=== PATIENT | male | born 1950 | race Caucasian/White ===

== ENCOUNTER 2024-05-04 16:57 | Inpatient (IN) | payer OTHER ==
[~2024-05-04] VITALS: Ht 170.2 cm; Wt 83.9 kg
[~2024-05-04 16:57] MED LIST: INSU10SU6 SUBQ
[2024-05-04 17:01] VITALS: BP 136/74; PULSE 92; RESP 20; TEMP 98.5; O2SAT 91
[2024-05-04 17:53] LABS: BASOPHILS # (AUTO) 0.2 K/uL (0.00-0.22); BASOPHILS % (AUTO) 1.4 % (0.0-2.0); EOSINOPHILS # (AUTO) 0.5 K/uL (0-0.4); EOSINOPHILS % (AUTO) 3.5 % (0.0-4.0); HEMATOCRIT 41.9 % (36-52); HEMOGLOBIN 13.9 g/dL (12.0-18.0); LYMPHOCYTES # (AUTO) 3.6 K/uL (2.0-11.5); LYMPHOCYTES % (AUTO) 25.3 % (20.5-51.1); MEAN CORPUSCULAR HEMOGLOBIN 28 pg (27-31); MEAN CORPUSCULAR HGB CONC 33 g/dL (33-37); MEAN CORPUSCULAR VOLUME 82.9 fL (80-94); MONOCYTES # (AUTO) 1.3 K/uL (0.8-1.0); MONOCYTES % (AUTO) 9.4 % (1.7-9.3); NEUTROPHILS # (AUTO) 8.5 K/uL (1.8-7.7); NEUTROPHILS % (AUTO) 60.4 % (42.2-75.2); PLATELET COUNT (AUTO) 442 K/uL (140-450); RED BLOOD CELL COUNT(AUTO) 5.05 MIL/uL (4.20-6.10); RED CELL DISTRIBUTION WIDTH 19.4 % (11.6-13.7); WHITE BLOOD COUNT (AUTO) 14.1 K/uL (4.8-10.8)
[2024-05-04 18:05] LABS: CARBON DIOXIDE 28.3 mmol/L (21-32); CHLORIDE 102 mmol/L (98-107); CREATININE 1.1 mg/dL (0.6-1.3); GLUCOSE 212 mg/dL (74-106); POTASSIUM 3.3 mmol/L (3.5-5.1); SODIUM SERUM 139 mmol/L (136-145); UREA NITROGEN, BLOOD 12 mg/dL (7-18)
[2024-05-04 18:22] LABS: ALANINE AMINOTRANSFERASE 17 U/L (12-78); ALBUMIN 2.6 g/dL (3.4-5.0); ALKALINE PHOSPHATASE 87 U/L (50-136); ASPARTATE AMINOTRANSFERASE 20 U/L (15-37); BILIRUBIN,DIRECT 0.1 mg/dL (0.0-0.3); TOTAL BILIRUBIN 0.3 mg/dL (0.0-1.0); TOTAL PROTEIN, SERUM 7.3 g/dL (6.4-8.2)
[2024-05-04 18:28] LABS: LACTIC ACID 1.9 mmol/L (0.4-2.0)
[2024-05-04 18:29] LABS: BILIRUBIN,URINE 1+ (NEGATIVE); BLOOD, URINE 3+ (NEGATIVE); LEUKOCYTE ESTERASE ,URINE 1+ (NEGATIVE); NITRITE, URINE POSITIVE (NEGATIVE); PROTEIN,URINE 3+ (NEGATIVE); UGLUCOSE 3+ (NEGATIVE)
[2024-05-04 18:30] LABS: APPEARANCE,URINE SLIGHTLY CLOUDY (CLEAR); COLOR,URINE RED (YELLOW)
[2024-05-04 18:34] LABS: BACTERIA,URINE 2+ /HPF (None Seen); ICTOTEST NEGATIVE (NEGATIVE); MUCUS,URINE None Seen /LPF (None Seen); RBC,URINE 20-50 /HPF (0-5); SQUAMOUS EPITHELIAL CELL,UR 4-10 (MOD) /LPF (0-3 (FEW))
[2024-05-04 18:50] LABS: INR 0.96 (0.8-1.2); PARTIAL THROMBOPLASTIN TIME 32.6 secs (22-35.6); PROTHROMBIN TIME 10.1 secs (10.8-13.4)
[2024-05-04] MEDS ORDERED: GABAPENTIN (19:01)
[2024-05-04] MEDS ORDERED: TRAZ-471 PO (19:01)
[2024-05-04] MEDS ORDERED: OMEG-130 PO (19:01)
[2024-05-04] MEDS ORDERED: ATOR40TA40 PO (19:01)
[2024-05-04] MEDS ORDERED: FLUT1BLS13 (19:01)
[2024-05-04] MEDS ORDERED: ACET-9529 PO (19:01)
[2024-05-04] MEDS ORDERED: ERTA1VIA2 (19:01)
[2024-05-04] MEDS ORDERED: ALBU3SOL83 NEB (19:01)
[2024-05-04] MEDS ORDERED: LANTUS SUBQ (19:01)
[2024-05-04] MEDS ORDERED: DICL100G32 TP (19:01)
[2024-05-04] MEDS ORDERED: INSU100I28 SUBQ (19:01)
[2024-05-04] MEDS ORDERED: SEMA0.258 SUBQ (19:01)
[2024-05-04] MEDS ORDERED: EMPA25TA PO (19:01)
[2024-05-04] MEDS ORDERED: ONDA4TAB12 PO (19:01)
[2024-05-04] MEDS ORDERED: APIX5TAB PO (19:01)
[2024-05-04] MEDS ORDERED: SERT-515 PO (19:01)
[2024-05-04] MEDS ORDERED: INSU-1329 SUBQ (19:01)
[2024-05-04] MEDS ORDERED: METH-1867 PO (19:01)
[2024-05-04] MEDS ORDERED: FURO40TA9 PO (19:01)
[2024-05-04] MEDS ORDERED: GABA300T36 (19:01)
[2024-05-04] MEDS ORDERED: FINA5TAB5 PO (19:01)
[2024-05-04] MEDS ORDERED: AMLO2.5T2 PO (19:01)
[2024-05-04] MEDS ORDERED: CARV25TA2 PO (19:01)
[2024-05-04] MEDS ORDERED: LISI20TA29 PO (19:01)
[2024-05-04] MEDS ORDERED: CEFEPIME 1,000 MG VIAL ONE (19:04)
[2024-05-04] MEDS: CEFEPIME 1,000 MG in DEXTROSE 5% 50 ML IV ONE (19:09)
[2024-05-04] MEDS ORDERED: VANCOMYCIN 1,000 MG VIAL ONE (19:19)
[2024-05-04] MEDS ORDERED: ACETAMINOPHEN 325 MG TAB PO PRN (19:30)
[2024-05-04] MEDS ORDERED: MAG SULF 2000 MG/WATER PREMIX 50 ML IV PRN (19:30)
[2024-05-04] MEDS ORDERED: POTASSIUM CHLORIDE 10 MEQ TABER PO PRN (19:30)
[2024-05-04] MEDS ORDERED: MAGNESIUM OXIDE 400 MG TAB PO PRN (19:30)
[2024-05-04] MEDS ORDERED: KCL 20 MEQ IN 100 mL PREMIX 200 ML IV PRN (19:30)
[2024-05-04] MEDS: VANCOMYCIN 1,000 MG in DEXTROSE 5% 250 ML IV ONE (19:45)
[2024-05-04] MEDS: NACL 0.9% 1,000 ML IV SCH (19:46)
[2024-05-04] MEDS ORDERED: cefTRIAXone 1,000 MG VIAL ONE (19:47)
[2024-05-04] MEDS: MORPHINE SULFATE 4 MG/ML SYR IVP PRN (19:57)
[2024-05-04 22:15] VITALS: PULSE 90; RESP 20; O2SAT 94
[2024-05-05 06:14] LABS: BASOPHILS # (AUTO) 0.2 K/uL (0.00-0.22); BASOPHILS % (AUTO) 1.4 % (0.0-2.0); EOSINOPHILS # (AUTO) 0.4 K/uL (0-0.4); HEMOGLOBIN 14.3 g/dL (12.0-18.0); LYMPHOCYTES # (AUTO) 3.3 K/uL (2.0-11.5); LYMPHOCYTES % (AUTO) 21.9 % (20.5-51.1); MEAN CORPUSCULAR HEMOGLOBIN 27 pg (27-31); MEAN CORPUSCULAR HGB CONC 33 g/dL (33-37); MEAN CORPUSCULAR VOLUME 83.4 fL (80-94); MONOCYTES # (AUTO) 1.3 K/uL (0.8-1.0); MONOCYTES % (AUTO) 8.6 % (1.7-9.3); NEUTROPHILS # (AUTO) 9.8 K/uL (1.8-7.7); NEUTROPHILS % (AUTO) 65.1 % (42.2-75.2); PLATELET COUNT (AUTO) 429 K/uL (140-450); RED BLOOD CELL COUNT(AUTO) 5.28 MIL/uL (4.20-6.10); RED CELL DISTRIBUTION WIDTH 19.3 % (11.6-13.7)
[2024-05-05 06:49] LABS: ALANINE AMINOTRANSFERASE 27 U/L (12-78); ALBUMIN 2.6 g/dL (3.4-5.0); ALKALINE PHOSPHATASE 91 U/L (50-136); ANION GAP 11.5 (8-16); ASPARTATE AMINOTRANSFERASE 29 U/L (15-37); CALCIUM 8.1 mg/dL (8.5-10.1); CARBON DIOXIDE 27.1 mmol/L (21-32); CHLORIDE 105 mmol/L (98-107); CREATININE 0.9 mg/dL (0.6-1.3); GLUCOSE 140 mg/dL (74-106); MAGNESIUM 2.1 mg/dL (1.8-2.4); POTASSIUM 3.6 mmol/L (3.5-5.1); SODIUM SERUM 140 mmol/L (136-145); TOTAL BILIRUBIN 0.2 mg/dL (0.0-1.0); TOTAL PROTEIN, SERUM 7.3 g/dL (6.4-8.2); UREA NITROGEN, BLOOD 10 mg/dL (7-18)
[2024-05-05] MEDS: ONDANSETRON 4 MG/2 ML VIAL IVP PRN (07:17)
[2024-05-05 08:00] VITALS: BP 148/71; PULSE 85; RESP 20; TEMP 97.2; O2SAT 95
[2024-05-05 12:00] VITALS: BP 142/75; PULSE 89; RESP 18; TEMP 97.2; O2SAT 96
[2024-05-05 16:00] VITALS: BP 151/88; PULSE 86; RESP 20; TEMP 97.3; O2SAT 97
[2024-05-05] MEDS: HYDROcodone/APAP 5/325 MG 1 TAB TAB PO PRN (19:55)
[2024-05-05 20:00] VITALS: BP 166/100; PULSE 86; PULSE 90; RESP 19; TEMP 97.8; O2SAT 96; O2SAT 98
[2024-05-06 06:50] LABS: BASOPHILS # (AUTO) 0.1 K/uL (0.00-0.22); EOSINOPHILS # (AUTO) 0.2 K/uL (0-0.4); EOSINOPHILS % (AUTO) 1.8 % (0.0-4.0); HEMATOCRIT 44.1 % (36-52); HEMOGLOBIN 14.5 g/dL (12.0-18.0); LYMPHOCYTES # (AUTO) 2.7 K/uL (2.0-11.5); LYMPHOCYTES % (AUTO) 20.5 % (20.5-51.1); MEAN CORPUSCULAR HEMOGLOBIN 28 pg (27-31); MEAN CORPUSCULAR HGB CONC 33 g/dL (33-37); MEAN CORPUSCULAR VOLUME 83.8 fL (80-94); MONOCYTES % (AUTO) 7.9 % (1.7-9.3); NEUTROPHILS % (AUTO) 68.8 % (42.2-75.2); PLATELET COUNT (AUTO) 429 K/uL (140-450); RED BLOOD CELL COUNT(AUTO) 5.26 MIL/uL (4.20-6.10); RED CELL DISTRIBUTION WIDTH 18.9 % (11.6-13.7); WHITE BLOOD COUNT (AUTO) 13.1 K/uL (4.8-10.8)
[2024-05-06 07:22] VITALS: PULSE 75; RESP 16; O2SAT 95; O2SAT 98
[2024-05-06 08:00] VITALS: BP 187/95; PULSE 82; RESP 18; TEMP 97.2; O2SAT 100; O2SAT 96
[2024-05-06] MEDS ORDERED: hydrALAZINE 25 MG TAB PO PRN (09:15)
[2024-05-06] MEDS: hydrALAZINE 25 MG TAB PO PRN (09:25)
[2024-05-06 09:46] LABS: ALANINE AMINOTRANSFERASE 36 U/L (12-78); ALBUMIN 2.6 g/dL (3.4-5.0); ALKALINE PHOSPHATASE 107 U/L (50-136); ANION GAP 14.3 (8-16); ASPARTATE AMINOTRANSFERASE 44 U/L (15-37); CALCIUM 8.1 mg/dL (8.5-10.1); CARBON DIOXIDE 26.3 mmol/L (21-32); CHLORIDE 102 mmol/L (98-107); CREATININE 0.8 mg/dL (0.6-1.3); GLUCOSE 102 mg/dL (74-106); MAGNESIUM 2.1 mg/dL (1.8-2.4); POTASSIUM 3.6 mmol/L (3.5-5.1); SODIUM SERUM 139 mmol/L (136-145); TOTAL BILIRUBIN 0.3 mg/dL (0.0-1.0); TOTAL PROTEIN, SERUM 7.5 g/dL (6.4-8.2); UREA NITROGEN, BLOOD 10 mg/dL (7-18)
[2024-05-06] MEDS: LORazepam 2 MG/ML VIAL IM/IVP PRN (09:47)
[2024-05-06 16:00] VITALS: BP 171/89; PULSE 96; RESP 18; TEMP 97.7; O2SAT 98
[2024-05-06 20:00] VITALS: PULSE 96; RESP 20; O2SAT 99
[2024-05-06 20:18] VITALS: PULSE 82; RESP 20; O2SAT 99
[2024-05-06 23:09] VITALS: O2SAT 95
[2024-05-07] VITALS: BP 118/92; PULSE 96; RESP 20; TEMP 97.7; O2SAT 95
[2024-05-07 06:42] LABS: BASOPHILS # (AUTO) 0.1 K/uL (0.00-0.22); BASOPHILS % (AUTO) 0.9 % (0.0-2.0); EOSINOPHILS # (AUTO) 0.1 K/uL (0-0.4); EOSINOPHILS % (AUTO) 0.9 % (0.0-4.0); HEMATOCRIT 41.2 % (36-52); HEMOGLOBIN 13.5 g/dL (12.0-18.0); LYMPHOCYTES % (AUTO) 20.7 % (20.5-51.1); MEAN CORPUSCULAR HEMOGLOBIN 27 pg (27-31); MEAN CORPUSCULAR HGB CONC 33 g/dL (33-37); MEAN CORPUSCULAR VOLUME 82.6 fL (80-94); MONOCYTES # (AUTO) 1.2 K/uL (0.8-1.0); MONOCYTES % (AUTO) 8.1 % (1.7-9.3); NEUTROPHILS # (AUTO) 10.1 K/uL (1.8-7.7); NEUTROPHILS % (AUTO) 69.4 % (42.2-75.2); PLATELET COUNT (AUTO) 436 K/uL (140-450); RED BLOOD CELL COUNT(AUTO) 4.99 MIL/uL (4.20-6.10); RED CELL DISTRIBUTION WIDTH 18.8 % (11.6-13.7); WHITE BLOOD COUNT (AUTO) 14.6 K/uL (4.8-10.8)
[2024-05-07 07:02] LABS: ALANINE AMINOTRANSFERASE 28 U/L (12-78); ALBUMIN 2.5 g/dL (3.4-5.0); ALKALINE PHOSPHATASE 94 U/L (50-136); ANION GAP 16.2 (8-16); ASPARTATE AMINOTRANSFERASE 32 U/L (15-37); CALCIUM 8.1 mg/dL (8.5-10.1); CARBON DIOXIDE 22.4 mmol/L (21-32); CHLORIDE 100 mmol/L (98-107); CREATININE 0.8 mg/dL (0.6-1.3); GLUCOSE 107 mg/dL (74-106); MAGNESIUM 1.8 mg/dL (1.8-2.4); POTASSIUM 3.6 mmol/L (3.5-5.1); SODIUM SERUM 135 mmol/L (136-145); TOTAL BILIRUBIN 0.3 mg/dL (0.0-1.0); TOTAL PROTEIN, SERUM 7.1 g/dL (6.4-8.2); UREA NITROGEN, BLOOD 10 mg/dL (7-18)
[2024-05-07 08:00] VITALS: BP 167/91; PULSE 71; RESP 20; TEMP 97.6; O2SAT 98
[2024-05-07 13:55] VITALS: O2SAT 99
[2024-05-07 16:00] VITALS: BP 166/85; PULSE 90; RESP 20; TEMP 98.6; O2SAT 98
[2024-05-07 20:00] VITALS: PULSE 90; RESP 19; TEMP 98; O2SAT 97
[2024-05-07 20:09] VITALS: O2SAT 97
[2024-05-08] VITALS: BP 158/59; PULSE 90; RESP 19; TEMP 98.6; O2SAT 97
[2024-05-08 06:56] LABS: BASOPHILS # (AUTO) 0.2 K/uL (0.00-0.22); BASOPHILS % (AUTO) 1.3 % (0.0-2.0); EOSINOPHILS # (AUTO) 0.1 K/uL (0-0.4); EOSINOPHILS % (AUTO) 1.1 % (0.0-4.0); HEMATOCRIT 43.7 % (36-52); HEMOGLOBIN 14.2 g/dL (12.0-18.0); LYMPHOCYTES # (AUTO) 3.3 K/uL (2.0-11.5); LYMPHOCYTES % (AUTO) 25.2 % (20.5-51.1); MEAN CORPUSCULAR HEMOGLOBIN 27 pg (27-31); MEAN CORPUSCULAR HGB CONC 33 g/dL (33-37); MEAN CORPUSCULAR VOLUME 82.6 fL (80-94); MONOCYTES # (AUTO) 1.4 K/uL (0.8-1.0); MONOCYTES % (AUTO) 10.7 % (1.7-9.3); NEUTROPHILS # (AUTO) 8.1 K/uL (1.8-7.7); NEUTROPHILS % (AUTO) 61.7 % (42.2-75.2); PLATELET COUNT (AUTO) 422 K/uL (140-450); RED BLOOD CELL COUNT(AUTO) 5.29 MIL/uL (4.20-6.10); RED CELL DISTRIBUTION WIDTH 18.7 % (11.6-13.7); WHITE BLOOD COUNT (AUTO) 13.2 K/uL (4.8-10.8)
[2024-05-08 07:29] LABS: ALANINE AMINOTRANSFERASE 24 U/L (12-78); ALBUMIN 2.4 g/dL (3.4-5.0); ALKALINE PHOSPHATASE 88 U/L (50-136); ANION GAP 14.4 (8-16); ASPARTATE AMINOTRANSFERASE 31 U/L (15-37); CALCIUM 8.1 mg/dL (8.5-10.1); CARBON DIOXIDE 23.2 mmol/L (21-32); CHLORIDE 100 mmol/L (98-107); CREATININE 0.9 mg/dL (0.6-1.3); GLUCOSE 148 mg/dL (74-106); POTASSIUM 3.6 mmol/L (3.5-5.1); SODIUM SERUM 134 mmol/L (136-145); TOTAL BILIRUBIN 0.3 mg/dL (0.0-1.0); UREA NITROGEN, BLOOD 14 mg/dL (7-18)
[2024-05-08 08:00] VITALS: BP 144/89; PULSE 90; PULSE 92; RESP 12; RESP 19; TEMP 97.8; TEMP 98; O2SAT 92; O2SAT 97
[2024-05-08 08:34] VITALS: O2SAT 92
[2024-05-08] MEDS ORDERED: LEVO-481 PO (09:33)
[2024-05-08] MEDS: LEVOFLOXACIN 500 MG/D5W PREMIX 100 ML IV SCH (10:43)
[2024-05-08] MEDS: LORazepam 1 MG TAB PO PRN (14:36)
[2024-05-08 17:19] VITALS: BP 131/76; PULSE 91; RESP 18; TEMP 98
[2024-05-09] MEDS ORDERED: levoFLOXacin 500 MG TAB PO SCH (09:00)
== END 2024-05-08 17:51 | DRG 640 ==
LOC: MED 16:57 → MMU 19:29 → MTU 20:44
PROVIDERS: ADMIT Hospitalist; ATTEND Hospitalist
DX: E87.6 Hypokalemia (principal); J18.9 Pneumonia, unspecified organism; N39.0 Urinary tract infection, site not specified; J44.0 Chronic obstructive pulmonary disease with (acute) lower respiratory infection; J96.10 Chronic respiratory failure, unspecified whether with hypoxia or hypercapnia; R65.10 Systemic inflammatory response syndrome (SIRS) of non-infectious origin without acute organ dysfunction; E87.20 Acidosis, unspecified; I10 Essential (primary) hypertension; E11.9 Type 2 diabetes mellitus without complications; Z79.4 Long term (current) use of insulin; Z79.01 Long term (current) use of anticoagulants; Z79.899 Other long term (current) drug therapy
CPT/HCPCS: 36415; 51702; 71045; 80048; 80053; 80076; 81001; 82948; 83605; 83735; 83880; 84484; 85025; 85610; 85730; 87040; 87081; 87086; 87186; 93005; 96365; 96375; 97163-GP; 97530; 99285; J0692; J0696; J1644; J1956; J2060; J2270; J2405; J3370; J7060; Q0092